=== PATIENT | male | born 1980 | race African-American/Black ===

== ENCOUNTER 2017-04-06 22:40 | Emergency (ER) | payer OTHER ==
[~2017-04-06] VITALS: Ht 170.2 cm; Wt 74.8 kg
[2017-04-06 22:40] VITALS: BP 123/66
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
[2017-04-06] MEDS ORDERED: Oxycodone/Acetaminophen 5-325 ORAL ONE (22:45)
[2017-04-06] MEDS ORDERED: Cyclobenzaprine 10mg Tab ORAL ONE (22:45)
[2017-04-07] VITALS: BP 134/77
[2017-04-07] MEDS ORDERED: ROBAXIN500 MG PO (00:40)
[2017-04-07] MEDS ORDERED: NORCO 5-325 TA1 EACH ORAL (00:40)
[2017-04-07 00:47] VITALS: BP 138/76
[2017-04-07 01:05] VITALS: BP 138/76
--- NOTE | 2017-04-07 09:23 | Diagnostic Imaging Report ---
Indication: Neck pain Technique: Cervical spine 3 views Comparison: None Findings: C7 is obscured. There is no gross fracture. There is straightening of the cervical lordosis. Prevertebral soft tissues are within normal limits. Impression: Limited visualization of C7. Otherwise no gross fracture. Straightening of the cervical lordosis may be positional or related to spasm. Clinical correlation recommended.
--- NOTE | 2017-04-07 09:24 | Diagnostic Imaging Report ---
Indication: Chest pain Technique: XRAY CHEST 1 V Comparison: None Findings: The cardiomediastinal silhouette is within normal limits. There is no focal consolidation, pneumothorax or pleural effusion. Osseous structures demonstrate no acute abnormality. Impression: No acute cardiopulmonary disease.
== END 2017-04-07 01:05 | disposition home or self-care (01) ==
LOC: EDBD 22:40 → EMR 23:18
DX: S13.4XXA Sprain of ligaments of cervical spine, initial encounter (principal); V49.40XA Driver injured in collision with unspecified motor vehicles in traffic accident, initial encounter; Y92.410 Unspecified street and highway as the place of occurrence of the external cause; I50.9 Heart failure, unspecified; N28.9 Disorder of kidney and ureter, unspecified; F17.200 Nicotine dependence, unspecified, uncomplicated
CPT/HCPCS: 71010; 72040; 99284